=== PATIENT | female | born 1960 | race Caucasian/White ===

== ENCOUNTER 2019-02-21 11:22 | Outpatient (CLI) | payer OTHER, SELFPAY ==
--- NOTE | 2019-02-21 10:58 | DI.RAD_ITS ---
SYMPTOMS/DIAGNOSIS: LT MID FOOT PAIN, 2/3 TMT PAIN LEFT FOOT: There are no prior comparison exams. There are fractures of the proximal fourth and fifth metatarsals as well as questionably the third metatarsal. There is mild separation of the fourth and fifth metatarsal fractures. The fractures appear subacute. Heel spurs are incidentally noted. IMPRESSION: Subacute appearing fractures of the fourth and fifth metatarsals. A fracture of the third proximal metatarsal is also questioned.
== END 2019-02-21 11:42 ==
PROVIDERS: PCP Internal Medicine; Visit Provider Student in an Organized Health Care Education/Training Program
DX: M79.672 Pain in left foot (principal); S92.342A Displaced fracture of fourth metatarsal bone, left foot, initial encounter for closed fracture; S92.352A Displaced fracture of fifth metatarsal bone, left foot, initial encounter for closed fracture
CPT/HCPCS: 73630

== ENCOUNTER 2019-03-24 09:12 | Outpatient (CLI) | payer OTHER, SELFPAY ==
--- NOTE | 2019-03-24 08:19 | DI.RAD_ITS ---
SYMPTOM/DIAGNOSIS: LEFT FOOT FRACTURES LEFT FOOT: Comparison is made with 21 February 2019 There has been no change in the alignment of the fractures of the bases of the 3rd through 5th metatarsals. There has been some increased healing of the 3rd and 4th metatarsals. There is still separation between the fragments of the 5th metatarsal. The bones appear osteopenic from disuse.
== END 2019-03-24 09:32 ==
PROVIDERS: PCP Internal Medicine; Visit Provider Student in an Organized Health Care Education/Training Program
DX: S92.335D Nondisplaced fracture of third metatarsal bone, left foot, subsequent encounter for fracture with routine healing (principal); S92.345D Nondisplaced fracture of fourth metatarsal bone, left foot, subsequent encounter for fracture with routine healing; S92.352D Displaced fracture of fifth metatarsal bone, left foot, subsequent encounter for fracture with routine healing
CPT/HCPCS: 73630

== ENCOUNTER 2019-06-19 13:49 | Outpatient (CLI) | payer OTHER, SELFPAY ==
--- NOTE | 2019-06-19 12:58 | DI.RAD_ITS ---
EXAM: XR FOOT LT COMPLETE INDICATION: F/U FRACTURE. COMPARISON: XR foot LT complete from 03/24/2019 TECHNIQUE: 2D digital imaging was performed. FINDINGS: There has been no significant change in alignment of the fractures involving the 3rd, 4th and 5th met atarsals. No new fractures or dislocations are present.
== END 2019-06-19 14:09 ==
PROVIDERS: PCP Internal Medicine; Visit Provider Student in an Organized Health Care Education/Training Program
DX: S92.335D Nondisplaced fracture of third metatarsal bone, left foot, subsequent encounter for fracture with routine healing (principal); S92.345D Nondisplaced fracture of fourth metatarsal bone, left foot, subsequent encounter for fracture with routine healing; S92.355D Nondisplaced fracture of fifth metatarsal bone, left foot, subsequent encounter for fracture with routine healing
CPT/HCPCS: 73630

== ENCOUNTER 2020-11-22 09:19 | Outpatient (CLI) | payer MEDICAID, SELFPAY ==
--- NOTE | 2020-11-22 09:00 | DI.RAD_ITS ---
EXAM: XR ELBOW RT COMPLETE CLINICAL HISTORY: f/u fracture. TECHNIQUE: 2D digital imaging was performed. COMPARISON: Prior outside x-rays 11/12/2020 reviewed FINDINGS: Again noted is slightly depressed fracture of the radial head. Appears similar to previous. Joint e ffusion noted. No other findings. No loose intra-articular body IMPRESSION: DATA REPOSITORY: RADIATION DOSE DELIVERED:
== END 2020-11-22 09:20 | disposition home or self-care (01) ==
LOC: DIORS 09:20
PROVIDERS: PCP Internal Medicine; Referring Provider Internal Medicine; Visit Provider Physician Assistant
DX: S52.121D Displaced fracture of head of right radius, subsequent encounter for closed fracture with routine healing (principal); M25.421 Effusion, right elbow
CPT/HCPCS: 73080

== ENCOUNTER 2021-07-04 11:17 | Outpatient (CLI) | payer MEDICAID, SELFPAY ==
--- NOTE | 2021-07-04 09:00 | DI.RAD_ITS ---
Exam(s) XR KNEE LT 3V AP,LAT,MARIJA EXAM: XR KNEE LT 3V AP,LAT,MARIJA CLINICAL HISTORY: eval L medial knee pain. TECHNIQUE: 2D digital imaging was performed. COMPARISON: No exams were available for comparison FINDINGS: Three views reveal no evidence of fracture. There appears to be a small joint effusion. Calcificati on noted at the insertion of the quadriceps tendon on the superior aspect of the patella. There are mild degenerative changes in the medial compartment. Lateral compartment appears unremarkable. Mild degenerative changes in the patellofemoral compartment. No osseous lesions and bone density appears age appropriate. IMPRESSION: Mild degenerative changes. DATA REPOSITORY: RADIATION DOSE DELIVERED:
--- NOTE | 2021-07-04 09:00 | DI.RAD_ITS ---
Exam(s) XR SHOULDER RT COMPLETE 2+V EXAM: XR SHOULDER RT COMPLETE 2+V CLINICAL HISTORY: eval R shoulder pain. TECHNIQUE: 2D digital imaging was performed. COMPARISON: No exams were available for comparison FINDINGS: There is no evidence of fracture or dislocation. No abnormal soft tissue calcifications. Minimal de generative changes in the glenohumeral joint. AC joint appears unremarkable. No osseous lesions IMPRESSION: DATA REPOSITORY: RADIATION DOSE DELIVERED:
== END 2021-07-04 11:18 | disposition home or self-care (01) ==
LOC: DIORS 11:17
PROVIDERS: PCP Internal Medicine; Visit Provider Student in an Organized Health Care Education/Training Program
DX: M25.562 Pain in left knee (principal); M25.511 Pain in right shoulder
CPT/HCPCS: 73562; 73030

== ENCOUNTER 2021-07-11 01:46 | Outpatient (CLI) | payer MEDICAID, SELFPAY ==
--- NOTE | 2021-07-11 08:30 | DI.MRI_ITS ---
Exam(s) MR LOWER JOINT LT WO EXAM: MR LOWER JOINT LT WO CLINICAL HISTORY: LT KNEE PAIN, M25.562 TECHNIQUE: Multiplanar multisequence MRI of the knee was performed. COMPARISON: CR XR KNEE LT 3V AP,LAT,MARIAJ from 07/04/2021 CR XR KNEE LT 3V AP,LAT,MARIJA from 07/04/2021 FINDINGS: EFFUSION: There is a moderate-sized joint effusion. MARROW:There is no evidence of fracture, bone contusion, nor osteochondral defects.. There are no si gnificant osseous lesions. PATELLOFEMORAL COMPARTMENT: The quadriceps tendon is intact. The patellar ligament is intact. There is advanced thinning of the retropatellar cartilage. There is multilevel full-thickness thinni ng over the lateral facet and subarticular edema in the posterior patella.There is no intraosseous si gnal to suggest recent patellar dislocation. There are no patellar retinacular tears. CRUCIATE LIGAMENTS: The anterior cruciate ligament is intact.The posterior cruciate ligament is intac t. MEDIAL COMPARTMENT/MEDIAL MENISCUS: There is a complex tear of the posterior horn of the medial menis cus. Most prominent part of the tearing is 1 cm from the root. There is an element of bucket-handle configuration. No flipped fragments of the torn meniscus. There is no tearing of the lateral 3rd a nd no extrusion. No meniscocapsular separation.. Anterior horn is intact.Mild cartilage degenerative changes. No osteochondral defects. There are, h owever, marginal osteophytes of both the inner and outer aspects of femoral condyle. MEDIAL COLLATERAL LIGAMENT: Intact LATERAL COMPARTMENT/LATERAL MENISCUS: There is no evidence of lateral meniscal tear.There are no iza dral defects, osteochondral defects, subarticular marrow edema, nor osteophytes evident. ILIOTIBIAL BAND: Intact LATERAL COLLATERAL LIGAMENT COMPLEX: The fibular collateral ligament is intact. The biceps femoris t endon is intact.Popliteus muscle and tendon are intact. IMPRESSION: 1. The main finding here is a complex tear of the posterior horn of the medial meniscus which mainly involves the mid and inner 3rd sparing of the lateral 3rd and no evidence of meniscocapsular separati on. No flipped meniscal fragments. No significant meniscal extrusion nor intrusion. Moderate degen erative changes in the medial compartment also noted. There are no osteochondral defects. 2. No tears of the lateral meniscus and minimal degenerative changes in the lateral compartment. 3. There is full-thickness thinning of the retropatellar cartilage and edema in the subarticular post erior patella. Quadriceps and patellar tendons are intact. 4. There are no cruciate ligament tears nor collateral ligament tears. 5. There is moderate-sized joint effusion. No Cadena cyst in the popliteal fossa. DATA REPOSITORY:
== END 2021-07-11 02:06 ==
PROVIDERS: PCP Internal Medicine; Visit Provider Student in an Organized Health Care Education/Training Program
DX: M25.562 Pain in left knee (principal); S83.242A Other tear of medial meniscus, current injury, left knee, initial encounter; M25.462 Effusion, left knee
CPT/HCPCS: 73721

== ENCOUNTER 2021-07-18 01:54 | Outpatient (CLI) | payer MEDICAID, SELFPAY ==
[2021-07-18 10:25] LABS: Source Nasal/Nares
[2021-07-18 12:53] LABS: COVID-19 PCR Negative (Negative)
== END 2021-07-18 01:55 | disposition home or self-care (01) ==
LOC: LBO 01:54
PROVIDERS: PCP Internal Medicine; Visit Provider Student in an Organized Health Care Education/Training Program
DX: Z20.822 Contact with and (suspected) exposure to COVID-19 (principal); Z01.818 Encounter for other preprocedural examination
CPT/HCPCS: 87635

== ENCOUNTER 2021-07-19 10:55 | Day surgery (SDC) | payer MEDICAID, SELFPAY ==
[2021-07-19] VITALS (8 sets, daily range): BP systolic 149–184; BP diastolic 81–93; PULSE 63–79; RESP 11–16; TEMP 36.1–36.6; O2SAT 97–100; BMI 35.6
--- NOTE | 2021-07-19 11:55 | W.PM.DSUDISC ---
Discharge Plan Disposition Patient Disposition: HOME Condition: Good Discharge Details Reason For Visit: Left knee internal derangement Attending Provider: Blayne Quijano Primary Care Provider: Deidra Gallegos Home Meds and New Rx's Prescriptions: New acetaminophen 500 mg tablet 500 mg PO Q6H PRN (Reason: pain) Qty: 60 RF: 2 hydrocodone-acetaminophen 5-325 mg tablet 1 tab PO Q6H PRN (Reason: severe pain) Qty: 4 RF: 0 Continued duloxetine 30 mg capsule,delayed release(DR/EC) 30 mg PO DAILY RF: 0 magnesium gluconate 27 mg magnesium (500 mg) tablet 25 mg PO DAILY RF: 0 meloxicam 15 mg tablet 15 mg PO DAILY RF: 0 zolpidem 5 mg tablet 5 mg PO QHS PRNRF: 0 hydrochlorothiazide 25 mg tablet 25 mg PO DAILY RF: 0 bupropion HCl [Wellbutrin] 75 MG tablet 75 mg PO BID RF: 0 codeine-guaifenesin [Cheratussin AC] 5 ML liquid 5 - 10 ml PO Q4H PRNQty: 100 RF: 0 Discontinued ibuprofen 200 mg capsule 800 mg PO Q6H PRNRF: 0 acetaminophen 500 mg capsule 500 mg PO Q4H PRNRF: 0 No Action losartan 50 mg Tablet 50 mg PO DAILY RF: 0 gabapentin 100 mg Capsule 200 mg PO QHS RF: 0 gabapentin 100 mg Tablet 200 PO RF: 0 acetaminophen [Tylenol Extra Strength] 500 mg Capsule 1,000 mg PO Q6H PRNRF: 0 ibuprofen 200 mg Tablet 600 mg PO TID RF: 0 cholecalciferol (vitamin D3) [Vitamin D3] 50 mcg (2,000 unit) Capsule 2,000 DAILY RF: 0 Discharge Instructions Stand Alone Forms: [facility] Knee Arthroscopy Equipment/Supplies: Partial Weight Bearing Crutches Activity:: Elevate Remove Dressings/Wound Care:: 72 hours Shower/Bathe:: 72 hours Diet:: As Tolerated Discharge Orders Discharge Orders: Discharge Order (Routine); Ordered 07/19/21 Ordered By: Gina Muro DS: Diagnosis Discharge Diagnosis (1) Internal derangement of left knee: Status: Acute
[2021-07-19] MEDS: Acetaminophen 500 MG TAB 1000 MG PO (12:20)
[2021-07-19] MEDS: Celecoxib 200 MG CAP 400 MG PO (12:20)
[2021-07-19] MEDS: Gabapentin 300 MG CAP PO (12:21)
[2021-07-19] MEDS: Lactated Ringers 1,000 ML 80 ML IV (12:45)
--- NOTE | 2021-07-19 13:32 | W.ANESPRE ---
General Info Date of Service Date Performed: 07/19/21 Height: 5 ft 0.5 in Weight: 84.1 kg Body Mass Index (BMI): 35.6 Surgical Procedure: Operation Date: 07/19/21 14:55 Proposed Procedures Side Surgeon p Knee Arthroscopy w/ Partial Medial Menisectomy Left Blayne Quijano MD Meds Allergies and Home Medications Allergies Allergy/AdvReac Type Severity Reaction Status Date / Time No Known Allergies Allergy Unverified 07/19/21 12:04 Home Medication Medication Instructions Recorded bupropion HCl [Wellbutrin] 75 mg PO BID 11/11/14 codeine-guaifenesin [Cheratussin 5 - 10 ml PO Q4H PRN #100 ml 11/11/14 AC] duloxetine 30 mg capsule,delayed 30 mg PO DAILY 02/21/19 release magnesium gluconate 27 mg 25 mg PO DAILY tab 02/21/19 magnesium (500 mg) tablet meloxicam 15 mg tablet 15 mg PO DAILY 02/21/19 zolpidem 5 mg tablet 5 mg PO QHS PRN 02/21/19 hydrochlorothiazide 25 mg tablet 25 mg PO DAILY 03/24/19 acetaminophen 500 mg PO Q6H PRN #60 tab 07/19/21 acetaminophen [Tylenol Extra 1,000 mg PO Q6H PRN 07/19/21 Strength] cholecalciferol (vitamin D3) 2,000 DAILY 07/19/21 [Vitamin D3] gabapentin 200 PO 07/19/21 gabapentin 200 mg PO QHS 07/19/21 hydrocodone-acetaminophen 1 tab PO Q6H PRN #4 tab 07/19/21 ibuprofen 600 mg PO TID 07/19/21 losartan 50 mg PO DAILY 07/19/21 Current Visit Medications: Current Medications Generic Name Dose Route Start Last Admin Trade Name Freq PRN Reason Stop Dose Admin Acetaminophen 1,000 mg 07/19/21 06:00 07/19/21 12:20 Acetaminophen 500 Mg Tab PO 07/19/21 16:00 1,000 mg PREOP BÁRBARA Administration Acetaminophen 650 mg 07/19/21 11:54 Acetaminophen 325 Mg Tab PO Q4H PRN PRN Hydrocodone Bitart/Acetaminophen 0 tab 07/19/21 11:54 Hydrocodone 5/Acetaminophen 325 Tab PO Q3H PRN PRN Pain Celecoxib 400 mg 07/19/21 06:00 07/19/21 12:20 Celecoxib 200 Mg Cap PO 07/19/21 16:00 400 mg PREOP BÁRBARA Administration Gabapentin 300 mg 07/19/21 06:00 07/19/21 12:21 Gabapentin 300 Mg Cap PO 07/19/21 16:00 300 mg PREOP BÁRBARA Administration Ringer's Solution 1,000 mls @ 80 mls/hr 07/19/21 06:00 07/19/21 12:45 IV 07/29/21 23:59 80 mls/hr INFUSION BÁRBARA Administration Cefazolin Sodium/Dextrose 2 gm in 50 mls @ 100 mls/hr 07/19/21 06:00 Ancef Duplex IVPB 07/19/21 16:00 PREOP BÁRBARA IV Miscellaneous Supplies 1 each 07/19/21 06:00 Iv Access IV 07/29/21 23:59 DIRECTED BÁRBARA Sodium Chloride 0 ml 07/19/21 06:00 Normal Saline Flush 10 Ml Syr IV 07/29/21 23:59 PRN PRN Sodium Chloride 0 ml 07/19/21 06:00 Normal Saline 10 Ml Vial IJ 07/29/21 23:59 DIRECTED PRN Sterile Water 0 ml 07/19/21 06:00 Water,Injection,Sterile 10 Ml Vial IJ 07/29/21 23:59 DIRECTED PRN PFSH Active Problems Active Problems: Problem Status Onset Code Fracture of third metatarsal bone of left foot S92.332A Fracture of fourth metatarsal bone of left foot S92.342A Closed nondisplaced fracture of fifth left metatarsal bone S92.355A Metatarsalgia of left foot M77.42 Right radial head fracture S52.121A Left knee pain M25.562 Right shoulder pain M25.511 Biceps tendinitis of right shoulder M75.21 Internal derangement of left knee M23.92 Right rotator cuff tendinitis M75.81 Tear of medial meniscus of left knee S83.242A Medical History Medical History (Updated 07/19/21 @ 12:18 by Dai Baig) History of depression History of restless legs syndrome Hx of essential hypertension Hx of sleep apnea pt. reports using CPAP Surgical History Surgical History Hx of appendectomy Hx of section Hx of colonoscopy Hx of hysterectomy Tobacco Smoking/Tobacco Use Status: Never Alcohol Alcohol Intake: current Alcohol intake frequency: holidays/special occasions only Substance Use Substance use: Never Substance use type: does not use Details: alcohol: t-2, wine Vital Signs and Lab Results Vital Signs Most Recent Vital Signs in EMR: Most Recent Vital Signs Temp Pulse Resp BP Pulse Ox 36.6 C 74 16 149/85 H 97 07/19/21 12:23 07/19/21 12:23 07/19/21 12:23 07/19/21 12:23 07/19/21 12:23 Lab Results Blood Type / Crossmatch: No Data to Display Complete Blood Count: No Data to Display Complete Metabolic Panel: No Data to Display Liver Function Panel: No Data to Display Coagulation Panel: No Data to Display Cardiac Panel: No Data to Display Arterial Blood Gas: No Data to Display Venous Blood Gas: No Data to Display Pancreas Panel: No Data to Display Thyroid Panel: No Data to Display Infectious Disease: Coronavirus (COVID-19)(PCR) Negative (Negative) 07/18/21 10:06 07/18/21 Coronavirus 2019 Source Nasal/Nares 07/18/21 10:06 07/18/21 Blood Cultures: No Data to Display Toxicology Panel: No Data to Display Anesthesia Assessment and Plan Anesthesia History Personal History: No History of Anesthesia Complications Family History: No Family History of Anesthesia Complications Exercise Tolerance Exercise Tolerance: Metabolic Equivalents>4 Pertinent Negatives Pertinent Negatives: No Symptoms of GERD, No Major Cardiovascular Symptoms or Complaints and No Major Pulmonary Symptoms or Complaints (MARAL uses CPAP ) Cardiac & Pulmonary Exam Cardiac Exam: Normal S1/S2 Heart Sounds Pulmonary Exam: Clear Bilateral Breath Sounds Implantable Cardiac Device Does patient have a Pacemaker or an ICD?: No Airway Exam Known Difficult Airway: No Mallampati Class: 3 Mouth Opening: Normal (> 3cm) Thyromental Distance: Greater than 3 cm Neck Range of Motion: Full ROM Neck Circumference: Normal Teeth Condition: Normal Dentition ASA Classification ASA Score: ASA 2 Emergency Case?: No NPO Status NPO Status: NPO Clears >2 hours, Solids >8 hours Anesthesia Plan Resuscitation Status: Full Code Anesthesia Technique: General Anesthesia Airway Planned: LMA Monitors Used: Standard Monitors
[2021-07-19] MEDS: ceFAZolin 2 GM/50 ML BAG IVPB (14:45)
[2021-07-19] MEDS: Bupivacaine 0.5% Pres-Free 30 ML VIAL (15:05)
[2021-07-19] MEDS: fentaNYL 100 MCG/2 ML VIAL IVP ×2 (15:30→15:54)
[2021-07-19] MEDS: HYDROmorphone 2 MG/ML VIAL IVP (16:05)
[2021-07-19] MEDS: HYDROcodone 5/Acetaminophen 325 TAB PO (16:39)
--- NOTE | 2021-07-19 16:56 | W.ANESPOSTOP ---
Postoperative Evaluation Date, Time and Location Date Performed: 07/19/21 Time Performed: 16:56 Patient Location: Day Surgery Unit Vital Signs Most Recent Imported Vital Signs: Most Recent Vital Signs Temp Pulse Resp BP Pulse Ox 36.3 C L 79 16 183/90 H 99 07/19/21 16:30 07/19/21 16:30 07/19/21 16:30 07/19/21 16:30 07/19/21 16:30 Pain Score Most Recent Pain Score: Most Recent Pain Score Pain Level 6 07/19/21 16:30 Assessment Mental Status: Awake (Alert & Oriented to Patient Baseline) Airway and Respiratory Function: Patent airway with normal (patient baseline) respiratory exam Cardiovascular Function: Hemodynamically Stable (HTN is resolving needs home medications. ) Hydration Status: Adequately Hydrated Nausea & Vomiting: No Nausea or Vomiting Pain: Pain is tolerable per patient Peripheral Nerve Block: Patient did not receive a nerve block
--- NOTE | 2021-07-19 21:45 | W.PM.OP ---
Date of service: 07/19/21 Time of Service: 15:25 Operative Note Operative Note DATE OF PROCEDURE: 07/19/21 PRE-OP DIAGNOSIS: Left medial meniscal tear POST-OP DIAGNOSIS: same PROCEDURE: Arthroscopic partial medial meniscectomy, left knee SURGEON: Blayne Quijano Refer to Anesthesia Record ESTIMATED BLOOD LOSS: 0 PATHOLOGY: none sent TOURNIQUET TIME: 0 COMPLICATIONS: None Patient was transported to: PACU Patient's condition: stable Indications: I have seen Frannie in clinic for symptoms of a meniscus tear. This was confirmed based on MRI and exam findings. Nonoperative measures were exhausted but disability and pain persisted. I discussed knee arthroscopy with meniscal intervention with the patient. I reviewed the risks of the procedure to include, but not limited to, bleeding, infection, pain, stiffness, damage to nerves or vessels, recurrence, blood clot. Despite these risks, the patient elected to proceed. Findings: A diagnostic arthroscopy was performed with the following findings: Suprapatellar Pouch: No significant inflammation, no loose bodies Medial Compartment: Medial compartment was quite tight and difficult to access, complex medial meniscal tear with a undersurface component within the posterior horn and a radial type tear adjacent to the root, disrupted meniscal root with few peripheral fibers intact, grade I chondromalacia of the femur, no loose bodies Notch: ACL and PCL were intact Lateral Compartment: No meniscal tear, intact meniscal root, no significant chondromalacia or signs of arthritis, no loose bodies Patellofemoral Compartment: Grade II chondromalacia, no apparent patellar maltracking Procedure Description: Frannie was greeted in the preoperative holding area where the correct side was identified and marked. The consent was reviewed with the patient and signed. The history and physical was updated. All questions were answered. She was taken back to the operating room. The patient was placed into the supine position on the operating room table. All bony prominences were well padded. Prophylactic antibiotics in the form of cefazolin were administered. The left leg was then prepped with Chloraprep and draped in a standard fashion with stockinette and extremity drape. A timeout to confirm correct identity, side and site, procedure, allergies, anesthesia, and medical concerns was performed. The leg was placed into a pneumatic leg valenzuela, [id number]. A standard lateral portal was made at the lateral border of the patella tendon in line with the inferior pole of the patella, soft spot. The skin and deep tissue was incised sharply and the blunt trochar was inserted atraumatically. A diagnostic arthroscopy was performed and the findings are listed above. The suprapatellar pouch had no significant inflammatory change. The patellofemoral articulation showed no articular damage as well as good tracking. The lateral gutter had no loose bodies and the medial gutter had no loose bodies. The knee was brought into some valgus stress in extension to open the medial compartment. A medial portal was made, localized by a spinal needle. The portal was created with an #11 blade through skin and capsule under direct visualization avoiding any meniscal injury. A probe was then inserted into the medial compartment. The medial compartment was fully inspected. The chondral surface of the tibia showed no significant chondromalacia and the surface of the femur showed grade I chondromalacia. The medial meniscus had to tears. One tear was undersurface tear with a displaceable fragment at the posterior horn and the other was a radial type tear just medial to the posterior root. This did disrupt the root but was stable to its posterior attachments. After evaluation, the meniscus was debrided down to a stable base using a series of biters and arthroscopic nikki. It was probed afterwards to confirm that the tear had been removed and the meniscus was stable. Maneuvering within the knee was difficult given how tight and small it was. The notch was then inspected which showed an intact ACL and an intact PCL. The leg was then brought into a figure of 4 position. The lateral compartment was fully inspected with the arthroscope and a probe. The chondral surface of the lateral femur showed no significant chondromalacia. The chondral surface of the lateral tibia showed no significant chondromalacia. The lateral meniscus had no meniscal tear. The arthroscope was brought back into the suprapatellar pouch and the leg was in full extension. The knee was thoroughly irrigated with the arthroscopic fluid on high flow and pressure. Inflow was stopped and excess fluid was removed. The wounds were closed with 4-0 Nylon. They were dressed with Xeroform, 4x4 gauze, ABD pad, Kerlix and an CHELLY wrap. A cryo-cuff was applied. The patient tolerated the procedure well and was returned to the Same Day Surgery area in a stable condition suffering no known complication.
== END 2021-07-19 17:55 | disposition home or self-care (01) ==
PROVIDERS: PCP Internal Medicine; Visit Provider Student in an Organized Health Care Education/Training Program
PROC: (CPT 29870; principal; 2021-07-19 14:45)
DX: M23.232 Derangement of other medial meniscus due to old tear or injury, left knee (principal); I10 Essential (primary) hypertension; G47.30 Sleep apnea, unspecified
CPT/HCPCS: 29881; J0131; J0690; J1100; J1885; J2250; J2405; J3010

== ENCOUNTER 2022-10-09 10:12 | Outpatient (CLI) | payer MEDICAID, SELFPAY ==
--- NOTE | 2022-10-09 08:45 | DI.RAD_ITS ---
Exam(s) XR FOOT LT COMPLETE EXAM: XR FOOT LT COMPLETE CLINICAL HISTORY: L foot pain. TECHNIQUE: 2D digital imaging was performed of the left foot. Three images were obtained. AP, obli que and lateral views were obtained. COMPARISON: CR XR FOOT LT COMPLETE from 06/19/2019 FINDINGS: BONES: No acute fracture is present. No bony destructive lesion is seen. There are old healed fractur e deformities of the 3rd, 4th and 5th metatarsals. There is a moderate-sized plantar calcaneal spur. There is an enthesophyte at the posterior calcaneus. JOINTS: No dislocation present. Mild degenerative changes are seen at the 1st MTP joint. SOFT TISSUE: Normal. IMPRESSION: No acute abnormality. DATA REPOSITORY: RADIATION DOSE DELIVERED:
== END 2022-10-09 10:13 | disposition home or self-care (01) ==
LOC: DIORS 10:12
PROVIDERS: PCP Internal Medicine; Referring Provider Internal Medicine; Visit Provider Physician Assistant
DX: M79.672 Pain in left foot (principal); M77.32 Calcaneal spur, left foot
CPT/HCPCS: 73630

== ENCOUNTER 2023-05-30 11:31 | Outpatient (CLI) | payer MEDICAID, SELFPAY ==
--- NOTE | 2023-05-30 10:15 | DI.RAD_ITS ---
Exam(s) XR SHOULDER RT COMPLETE 2+V EXAM: XR SHOULDER RT COMPLETE 2+V CLINICAL HISTORY: right shoulder f/u. TECHNIQUE: 2D digital imaging was performed. Two views. COMPARISON: No exams were available for comparison FINDINGS: BONES: No acute fracture is present. No bony destructive lesion is seen. Minimal spurring at the gre ater tuberosity and tip of the acromion. JOINTS: No dislocation present. Glenohumeral joint space is maintained. SOFT TISSUE: Normal. IMPRESSION: Minimal degenerative changes. DATA REPOSITORY: RADIATION DOSE DELIVERED:
== END 2023-05-30 11:32 | disposition home or self-care (01) ==
LOC: DIORS 11:31
PROVIDERS: PCP Internal Medicine; Visit Provider Student in an Organized Health Care Education/Training Program
DX: M75.21 Bicipital tendinitis, right shoulder (principal)
CPT/HCPCS: 73030

== ENCOUNTER → 2023-06-19 02:10 | Outpatient (CLI) | payer MEDICAID, SELFPAY ==
--- NOTE | 2023-06-19 07:00 | DI.MRI_ITS ---
Exam(s) MR UPPER JOINT RT WO EXAM: MR UPPER JOINT RT WO CLINICAL HISTORY: PAIN, ? RTC TEAR,tendonitis biceps, m75.101,M75.21. TECHNIQUE: Multiplanar multisequence MRI was performed. COMPARISON: CR XR SHOULDER RT COMPLETE 2+V from 05/30/2023 FINDINGS: BONES: There is no fracture or contusion pattern. JOINTS: The acromioclavicular joint is normal. The glenohumeral joint is normal. TENDONS: Supraspinatus: There is thickening of the supraspinatus tendon consistent with tendinosis. There is mild hyperintense signal seen within the substance of the supraspinatus tendon which may reflect tend inosis or partial tear. No evidence of a full-thickness supraspinatus tendon tear. Infraspinatus: There is tendinosis of the infraspinatus tendon. No evidence of a full-thickness tend on tear. Subscapularis: There is tendinosis of the subscapularis tendon. Teres Minor: Unremarkable. Biceps and [place]: Unremarkable. MUSCLES: Unremarkable. GLENOID LABRUM: Unremarkable on this noncontrast examination. SOFT TISSUES: Unremarkable. LIGAMENTS: Unremarkable. OTHER: Subacromial and subdeltoid bursae are unremarkable. IMPRESSION: 1. Tendinosis involving the infraspinatus and subscapularis tendons without evidence of a full-thickn ess tear. 2. Tendinosis of the supraspinatus tendon. There is a focus of hyperintense signal seen near the ins ertion site which may represent a small partial tear. DATA REPOSITORY:
== END ==
PROVIDERS: PCP Internal Medicine; Visit Provider Student in an Organized Health Care Education/Training Program
DX: M75.21 Bicipital tendinitis, right shoulder
CPT/HCPCS: 73221

== ENCOUNTER 2025-06-11 14:49 | Outpatient (CLI) | payer BC, SELFPAY ==
--- NOTE | 2025-06-11 13:45 | DI.RAD_ITS ---
Exam(s) XR HIP LT COMPLETE AP PELVIS EXAM: XR HIP LT COMPLETE AP PELVIS CLINICAL HISTORY: LEFT HIP PAIN. TECHNIQUE: 2D digital imaging was performed. Two views. COMPARISON: No exams were available for comparison FINDINGS: BONES: No acute fracture is present. No bony destructive lesion is seen. There are enthesophytes at the iliac wings and greater trochanters. JOINTS: No dislocation present. The SI joints and pubic symphysis are intact. The hip joint spaces are maintained. There is mild acetabular spurring. SOFT TISSUE: Normal. IMPRESSION: Minimal degenerative changes of the hips DATA REPOSITORY: RADIATION DOSE DELIVERED:
== END 2025-06-11 14:50 | disposition home or self-care (01) ==
LOC: DIORS 14:49
PROVIDERS: PCP Internal Medicine; Visit Provider Physician Assistant
DX: M25.552 Pain in left hip (principal); M16.0 Bilateral primary osteoarthritis of hip
CPT/HCPCS: 73502